=== PATIENT | female | born 2000 | race Caucasian/White ===

== ENCOUNTER 2022-07-23 10:57 | Outpatient (CLI) | payer OTHER, SELFPAY | END 2022-07-23 10:58 | disposition home or self-care (01) | LOC: ANHBWCAUD 11:00 | PROVIDERS: PCP Pediatrics Pediatric Emergency Medicine | DX: H65.493 Other chronic nonsuppurative otitis media, bilateral (principal); H90.3 Sensorineural hearing loss, bilateral | CPT/HCPCS: 92557; 92567 ==

== ENCOUNTER 2023-07-23 18:44 | Emergency (ER) | payer OTHER, SELFPAY ==
--- NOTE | 2023-07-23 18:45 | ED.FEMALEGU ---
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 Reports that she just finished her period 3 days ago. She is concerned for sexually transmitted infections. Last intercourse was back in February. States that over the last 3 days she has developed a thick clear discharge and odor. Denies any vaginal pain. Does have some urinary frequency and urgency as well. Denies use of any new scented soaps, shampoos, lotions, or use of sex toys. Related Data Home Medications Medication Instructions Recorded Confirmed lamotrigine 100 mg tablet 100 mg PO DAILY 07/23/23 07/23/23 phentermine 1 tablet PO DAILY 07/23/23 07/23/23 sertraline 100 mg tablet 100 mg PO DAILY 07/23/23 07/23/23 Allergies Allergy/AdvReac Type Severity Reaction Status Date / Time No Known Allergies Allergy Verified 07/23/23 18:54 Review of Systems Review of Systems: Pertinent positives per HPI. Patient denies any fever, chills, rash, headache, visual changes, dizziness, cough, shortness of breath, chest pain, palpitations, nausea, vomiting, diarrhea, constipation, abdominal pain. PMFSH Comments At the time of my signature, I reviewed and agree with the nursing past medical, surgical, social, and family history. There is no relevant family history pertinent to the patient complaint. Exam Narrative: General: Well-developed, well nourished, in no apparent distress Head: Normocephalic, atraumatic. Cardio: Regular rate and rhythm, s1 and s2 normal, no murmur appreciated. Resp: Clear to auscultation bilaterally, no rhonchi, rales, wheezing or rubs. Abdomen: Soft, pliable, bowel sounds present in all quadrants, non-tender to palpation, no CVAT tenderness. : Pelvic exam performed with (Margie SÁNCHEZ) at bedside. Verbal consent obtained from patient. Normal external female genitalia without lesions or masses, Urinary meatus: patent without discharge, Vagina: No lesions or mass, clear thick vaginal discharge with brown blood visualized in the vaginal vault Cervix: pink without mass, lesions, or tenderness. Adnexa: without palpable mass or tenderness. Course Course Emergency Course: Portions of this record may have been created with voice recognition software. Level of Care: Express Care Visit Vital Signs Vital signs: Vital signs reviewed MDM - Female Genitourinary MDM Narrative Medical decision making narrative: At the time of visit patient is resting comfortably on the exam table. Patient appears to be nontoxic. Labs: UA positive for protein, ketone, and blood. Pelvic exam completed and testing for chlamydia, gonorrhea, trich, and BV was sent to the lab Plan: I suspect patient has vaginal discharge likely due to BV. Prescription for metronidazole was sent to the pharmacy. Supportive measures were discussed with the patient and they voiced understanding discharge instructions and agrees to treatment plan. Return precautions reviewed Differential Diagnosis Differential diagnosis: Likely urinary tract infection, bacterial vaginosis, trichomoniasis, vaginitis, cystitis and other (STI) Discharge Plan Discharge Clinical Impression: Vaginal discharge, Urinary frequency Patient Disposition: Home, Self-Care Condition: Stable Instructions: Antibiotic Form, Bacterial Vaginosis (ED), Sexually Transmitted Diseases (ED), Safe Sex Practices (ED), Vaginal Discharge (ED) Additional Instructions: UA shows trace of protein, trace of blood, and ketones. We will send for culture if this comes back positive we will contact him place you on antibiotics at that time. Take metronidazole as prescribed-this will treat bhavin
[2023-07-23 18:57] VITALS: BP 135/86; PULSE 79; RESP 16; TEMP 36.9; O2SAT 98
--- NOTE | 2023-07-23 19:35 | PC.NURSE ---
1910 pelvic exam with culture obtained by provider.
[2023-07-24 14:21] LABS: Trichomonas Vag PCR NOT DETECTED (NOT DETECTE)
[2023-07-24 14:46] LABS: Chlamydia trachomatis NOT DETECTED (NOT DETECTE); Neisseria gonorrhoeae PCR NOT DETECTED (NOT DETECTE)
[2023-07-27] LABS: Bacterial Vaginosis Negative (Negative)
== END 2023-07-23 19:23 | disposition home or self-care (01) ==
PROVIDERS: Emergency Provider Nurse Practitioner Family
DX: N89.8 Other specified noninflammatory disorders of vagina (principal); R35.0 Frequency of micturition
CPT/HCPCS: 81003; 81513; 87086; 87491; 87591; 87661; 99214; G0463